=== PATIENT | female | born 2000 | race Caucasian/White ===

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

== ENCOUNTER 2020-02-01 15:36 | Emergency (ER) | payer MEDICAID, OTHER ==
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
--- NOTE | 2020-02-01 16:36 | CR ---
[id number] RAD/RAD Hand Right 3V EXAM: RAD Hand Right 3V CLINICAL DATA: TRAUMA COMPARISON: NO PREVIOUS SIMILAR EXAM IS AVAILABLE. FINDINGS: No fracture or dislocation is seen. Soft tissue swelling is seen at the level of the right fifth metacarpal phalangeal joint There is no radiopaque foreign body in the soft tissues. There is no air in the soft tissues. There is no cortical thickening or periosteal reaction either. IMPRESSION: NEGATIVE PLAIN FILM EXAM. Elmer Ferguson MD 02/01/20 [id number] Thank you for allowing us to participate in the care of your patient.
[2020-02-01] MEDS ORDERED: Bupivacaine 0.25% 30 ML SDV INJECT PRN (16:45)
[2020-02-01] MEDS ORDERED: Bupivacaine 0.25% 30 ML SDV ONE (17:02)
[2020-02-01 19:37] VITALS: BP 131/94; PULSE 104
== END 2020-02-01 18:00 | disposition home or self-care (01) ==
LOC: VM.ED 15:36
DX: S61.214A Laceration without foreign body of right ring finger without damage to nail, initial encounter (principal); S61.216A Laceration without foreign body of right little finger without damage to nail, initial encounter; J45.909 Unspecified asthma, uncomplicated; Z79.899 Other long term (current) drug therapy; Z88.1 Allergy status to other antibiotic agents; Z88.5 Allergy status to narcotic agent; W25.XXXA Contact with sharp glass, initial encounter; Y92.002 Bathroom of unspecified non-institutional (private) residence as the place of occurrence of the external cause
CPT/HCPCS: 12002; 73130; 99283; J3490

== ENCOUNTER 2022-07-09 16:23 | Emergency (ER) | payer MEDICAID ==
[2022-07-09 16:36] VITALS: BP 127/78; PULSE 89
== END 2022-07-09 17:31 | disposition home or self-care (01) ==
LOC: VM.ED 16:23
DX: M25.552 Pain in left hip (principal); Z88.1 Allergy status to other antibiotic agents; Z88.5 Allergy status to narcotic agent
CPT/HCPCS: 99283

== ENCOUNTER 2025-03-06 13:59 | Emergency (ER) | payer MEDICAID, OTHER ==
[2025-03-06 14:18] LABS: APPEARANCE,URINE SLIGHTLY CLOUDY (CLEAR); GLUCOSE,URINE NEGATIVE (NEGATIVE); OCCULT BLOOD,URINE NEGATIVE (NEGATIVE)
[2025-03-06] MEDS: Ondansetron 4 MG/2 ML SDV IVPUSH ONE (14:31)
[2025-03-06] MEDS: Orphenadrine 60 MG/2 ML Inj IV ONE (16:11)
[2025-03-06 17:22] VITALS: BP 107/63; PULSE 67
== END 2025-03-06 16:22 | disposition home or self-care (01) ==
LOC: VM.ED 13:59
DX: M54.6 Pain in thoracic spine (principal); Z88.8 Allergy status to other drugs, medicaments and biological substances; Z88.5 Allergy status to narcotic agent; Z79.899 Other long term (current) drug therapy; X50.0XXA Overexertion from strenuous movement or load, initial encounter; Y93.89 Activity, other specified
CPT/HCPCS: 72128; 81003; 81025; 96374; 96375; 99284; J1171; J2360; J2405; 99283